=== PATIENT | female | born 1985 | race African-American/Black ===

== ENCOUNTER 2020-01-20 14:43 | Emergency (ER) | payer MEDICARE, OTHER ==
[2020-01-20 14:49] VITALS: BP 120/85; PULSE 90; RESP 18; TEMP 98.7
--- NOTE | 2020-01-20 15:29 | ED ---
Skin/Abscess/FB HPI - General Chief complaint: Skin/Abscess/Foreign Body Stated complaint: Female Genital Time Seen by Provider: 01/20/20 15:02 Source: patient Mode of arrival: ambulatory Limitations: no limitations - History of Present Illness Initial comments: Patient is a 34-year-old female presents emergency Department with chief complaint of a Arsh egg stuck in the vagina. Patient reports uses this to strengthen her vaginal muscles. Patient reports that she is able to push it out but not this time. Patient states it has been in for about 2 days. Patient denies any foul smell or vaginal discharge. She states it does feel uncomfortable at times. Patient denies increased urgency frequency or dysuria. States she has used this multiple times but has never been stuck. - Related Data Allergies Allergy/AdvReac Type Severity Reaction Status Date / Time infliximab [From Remicade] Allergy Anaphylaxis Verified 01/20/20 14:49 Review of Systems ROS Statement: Those systems with pertinent positive or pertinent negative responses have been documented in the HPI. ROS Other: All systems not noted in ROS Statement are negative. Past Medical History Additional Past Medical History / Comment(s): Crohns History of Any Multi-Drug Resistant Organisms: None Reported Past Surgical History: Bowel Resection Additional Past Surgical History / Comment(s): Bowel resection with ostomy, skin grafts. Past Psychological History: Anxiety, Depression Smoking Status: Never smoker Past Alcohol Use History: None Reported Past Drug Use History: None Reported General Exam Limitations: no limitations General appearance: alert, in no apparent distress Head exam: Present: atraumatic, normocephalic, normal inspection Eye exam: Present: normal appearance, PERRL, EOMI Pupils: Present: normal accommodation ENT exam: Present: normal exam, normal oropharynx, mucous membranes moist Neck exam: Present: normal inspection, full ROM. Absent: tenderness Respiratory exam: Present: normal lung sounds bilaterally. Absent: respiratory distress, wheezes Cardiovascular Exam: Present: regular rate, normal rhythm, normal heart sounds External exam: Present: normal external exam Speculum exam: Present: foreign body Extremities exam: Present: normal inspection, full ROM Back exam: Present: normal inspection, full ROM Neurological exam: Present: alert, oriented X3 Psychiatric exam: Present: normal affect, normal mood Skin exam: Present: warm, dry, intact, normal color Course Vital Signs 01/20/20 14:44 Temperature 98.7 F Pulse Rate 90 Respiratory 18 Rate Blood Pressure 120/85 O2 Sat by Pulse 97 Oximetry Procedures - Procedures Initial comment: Vaginal foreign body removal: Solid object initiated of the neck approximately 54 cm. No trauma to the vagina, able to remove with a speculum, no anesthesia used, patient tolerated procedure well. Medical Decision Making - Medical Decision Making Patient is a 34-year-old female presenting to emergency Department with a vaginal foreign body. This object was egg-shaped and I was able to remove it with a speculum alone. Patient tolerated procedure well. No other vaginal trauma appreciated. She didn't have any other vaginal or urinary symptoms. Return parameters discussed with patient was understanding and agreeable. Case discussed physician. Disposition Clinical Impression: Vaginal foreign body, Vaginal discomfort Disposition: HOME SELF-CARE Condition: Stable Instructions (If sedation given, give patient instructions): Vaginal Foreign Body (ED) Additional Instructions: Return to the emergency department if symptoms worsen. Is patient prescribed a controlled substance at d/c from ED?: No Referrals: None,Stated [Primary Care Provider] - 1-2 days Time of Disposition: 15:29
== END 2020-01-20 15:30 | disposition home or self-care (01) ==
LOC: EC 14:43
DX: T19.2XXA Foreign body in vulva and vagina, initial encounter (principal); Z88.8 Allergy status to other drugs, medicaments and biological substances
CPT/HCPCS: 99283